=== PATIENT | female | born 1960 | race Caucasian/White ===

== ENCOUNTER → 2016-11-15 | Outpatient (CLI) | payer OTHER ==
--- NOTE | 2016-11-15 16:28 | KCIC ---
PROCEDURE MR of the right proximal humerus and MR of the right shoulder HISTORY Closed fracture of the right proximal humerus since May 2016. Fracture is not healing. TECHNIQUE Routine multiplanar sequences are obtained through the proximal humerus and through the right shoulder. COMPARISON None. FINDINGS Right proximal humerus There is moderate motion degradation. There is a fracture of the proximal humeral shaft with mild anterior lateral angulation. There is also mild medial displacement of the distal fragment with mild fracture overriding. Diffuse abnormal marrow signal identified within the entire shaft segment of the proximal humeral fragment. There is also some abnormal marrow signal within the proximal aspect of the distal fragment. This consists of mostly isointense T1 signal and hyperintense T2 signal. Although detail is limited by the motion as well as by the patient's body habitus, which made it difficult to centered the fracture in the area of coverage, there does appear to be limited union or nonunion of the fracture itself. There does appear to be some callus but this is poorly defined. There is poor definition of the humeral cortex in the area of the fracture, could be related to the trauma itself but some bone destruction is not possible to exclude. Abnormal signal identified within the soft tissues around the fracture and within the adjacent muscle tissue. This appears contiguous with the fracture itself. As seen on the axial images in particular, series 13, image 19, this has a possible masslike configuration. Right shoulder Moderate motion degradation. Acromioclavicular joint mildly degenerative Diffuse rotator cuff tendinosis. No measurable rotator cuff tear. No significant subdeltoid bursal fluid. Small glenohumeral joint effusion. Limited labrum exam due to the motion but a tear of at least the posterosuperior labrum is suspected. Moderate glenohumeral joint primary osteoarthritis. Generalized muscle atrophy. Abnormal marrow signal identified in the proximal humeral shaft, further evaluated on the separate humerus MRI. IMPRESSION 1. Ununited fracture of the proximal humeral shaft with mild angulation. Extensive marrow signal pathology within the visualized humeral shaft and through the fracture, concerning for pathologic nature of the fracture due to underlying bone tumor or other infiltrative marrow malignancy. There is some abnormal soft tissue surrounding the fracture, concerning for soft tissue mass. This could represent a primary bone tumor, with secondary soft tissue mass or a primary soft tissue tumor with secondary bone involvement. 2. Rotator cuff tendinosis. 3. Probable posterior through superior labral tear. 4. Note that moderate motion degradation could limit accuracy of the exams. Electronically signed by: Blayne Williamson MD (November 15, 2016 16:27:16)
--- NOTE | 2016-11-16 13:58 | KCIC ---
PROCEDURE CT of the right humerus HISTORY Right humerus fracture May 2016, not healing. TECHNIQUE Standard noncontrast imaging. Exposure: One or more of the following individualized dose reduction techniques were utilized for this exam: 1. Automated exposure control. 2. Adjustment of the mA and/or kV according to patient size. 3. Use of iterative reconstruction technique. COMPARISON MRI study of the same day. FINDINGS At least moderate motion degradation. There is also artifact due to body habitus. Oblique fracture of the proximal humeral shaft is again identified with mild angulation and offset. The cortical component of the fracture line is clearly visualized. There is abundant juxta cortical callus formation surrounding the fracture. The possible soft tissue mass identified on MRI may be at least in part due to this marginal callus surrounding the shaft. There is some offset at the superior humeral head articular surface with 3 millimeters depression of the subchondral bone plate just medial to the greater tuberosity. Glenohumeral joint appears maintained. Acromioclavicular joint is intact. IMPRESSION 1. Exam detail limited by artifact. 2. Proximal humeral fracture identified. There is very little cortical bridging, compatible with non healing. Note there is quite a bit of marginal callus, which could at least partially account for the possible soft tissue mass seen on the MRI. However, considering the marrow changes identified on the MR, it is still difficult to exclude pathologic etiology, as discussed on that exam. 3. Likely due to old fracture deformity. Electronically signed by: Blayne Williamson MD (November 16, 2016 13:56:48)
== END | disposition home or self-care (01) ==
LOC: KCIC CT 13:04
PROVIDERS: ATTEND Orthopaedic Surgery
DX: S42.201A Unspecified fracture of upper end of right humerus, initial encounter for closed fracture (principal); X58.XXXA Exposure to other specified factors, initial encounter; Y93.89 Activity, other specified; Y92.89 Other specified places as the place of occurrence of the external cause; Y99.8 Other external cause status
CPT/HCPCS: 73200; 73218; 73221

== ENCOUNTER → 2016-11-26 | Outpatient (CLI) | payer OTHER ==
--- NOTE | 2016-11-26 16:31 | RAD ---
Examination: CT right humerus without contrast History: History of right humerus fracture, nonhealing Comparison: 11/15/2016 Technique: Axial CT images of the proximal humerus were performed without contrast. Coronal and sagittal reformats are performed. 3-D volumetric reformats were performed. PQRS Compliance Statement: One or more of the following individualized dose reduction techniques were utilized for this examination: 1. Automated exposure control 2. Adjustment of the mA and/or kV according to patient size 3. Use of iterative reconstruction technique Findings: There is oblique fracture of the proximal humerus shaft with mild angulation grossly similar to prior exam. Juxtacortical callus formation identified about the fracture site. The humerus head is within the glenoid. There is mild offset identified at the superior humerus head articular surface with 3 mm depression of the subchondral bone plate just medial to the greater tuberosity grossly similar to prior exam Moderate degenerative changes identified in the acromioclavicular joint and the glenoid humeral joint. No significant obvious cortical bony bridging identified. Impression : Proximal humerus fracture grossly appears unchanged with exuberant marginal callus formation with no evidence of cortical bony bridging. Probably old ununited fracture.
== END | disposition home or self-care (01) ==
LOC: CT 13:07
PROVIDERS: ATTEND Orthopaedic Surgery
DX: S42.341 Displaced spiral fracture of shaft of humerus, right arm (principal); X58.XXXD Exposure to other specified factors, subsequent encounter
CPT/HCPCS: 73200